=== PATIENT | male | born 1970 | race Caucasian/White ===

== ENCOUNTER 2017-11-11 21:36 | Emergency (ER) | payer OTHER ==
[2017-11-11] MEDS ORDERED: SODIUM CHLORIDE 0.9% 500 ML IV STA (22:13)
[2017-11-11] MEDS ORDERED: MORPHINE SULFATE 4 MG/ML SYRINGE IV STA (22:13)
[2017-11-11] MEDS ORDERED: GLUCAGON 1 MG/ML VIAL IVP STA (22:14)
--- NOTE | 2017-11-11 22:16 | ED ---
General Adult HPI - General Chief complaint: Nausea/Vomiting/Diarrhea Stated complaint: vomiting x 3 hours Source: family Mode of arrival: ambulatory Limitations: no limitations - History of Present Illness Initial comments: Dictation was produced using [employer] dictation software. please excuse any grammatical, word or spelling errors. Chief Complaint: 47-year-old malein the past medical history presents with feelings of impacted food in his lower chest. History of Present Illness: Patient is a 47-year-old male presents with feelings of fluid in his chest. Patient states that he was eating spaghetti steak when during the end of his middle he felt as if there was something stuck in his throat and lower chest. He drank some cold after seeing that recommendation on the Internet. It relieved his symptoms slightly however symptoms return. Patient has similar episode approximately one month ago with eating however not as severe. Denies any constitutional symptoms. Denies any pain. The ROS documented in this emergency department record has been reviewed and confirmed by me. Those systems with pertinent positive or negative responses have been documented in the HPI. All other systems are other negative and/or noncontributory. - Related Data Home Medications Medication Instructions Recorded Confirmed No Known Home Medications 11/11/17 11/11/17 Allergies Allergy/AdvReac Type Severity Reaction Status Date / Time No Known Allergies Allergy Verified 11/11/17 21:42 Review of Systems ROS Statement: Those systems with pertinent positive or pertinent negative responses have been documented in the HPI. ROS Other: All systems not noted in ROS Statement are negative. Past Medical History Past Medical History: No Reported History History of Any Multi-Drug Resistant Organisms: None Reported Past Surgical History: No Surgical Hx Reported Past Psychological History: No Psychological Hx Reported Smoking Status: Never smoker Past Alcohol Use History: Occasional Past Drug Use History: None Reported General Exam - General Exam Comments Initial Comments: PHYSICAL EXAM: General Impression: Alert and oriented x3, acute distress, frequent belching HEENT: Normocephalic atraumatic, extra-ocular movements intact, pupils equal and reactive to light bilaterally, mucous membranes moist. Cardiovascular: Heart regular rate and rhythm, S1&S2 audible, no murmurs, rubs or gallops Chest: Lungs clear to auscultation bilaterally, no rhonchi, no wheeze, no rales Abdomen: Bowel sounds present, abdomen soft, non-tender, non-distended, no organomegaly Musculoskeletal: Pulses present and equal in all extremities, no peripheral edema Motor: Power 5/5 bilaterally, no focal deficits noted Neurological: CN II-XII grossly intact, no focal motor or sensory deficits noted Skin: Intact with no visualized rashes Psych: Normal affect and mood Limitations: no limitations Course Vital Signs 11/11/17 11/11/17 11/11/17 21:39 21:47 22:50 Temperature 98.2 F Pulse Rate 77 88 82 Respiratory 18 20 20 Rate Blood Pressure 118/73 123/68 137/71 O2 Sat by Pulse 99 99 99 Oximetry 11/11/17 11/12/17 11/12/17 23:53 00:35 01:15 Temperature Pulse Rate 78 74 68 Respiratory 20 18 20 Rate Blood Pressure 114/72 121/76 110/57 O2 Sat by Pulse 97 98 95 Oximetry Medical Decision Making - Medical Decision Making ED course: 47-year-old male presents with clinical presentation suspicious for impacted food. All signs upon arrival are within acceptable limits. The differentials also included esophageal spasm.Laboratory evaluation obtained. CBC unremarkable. Metabolic panel is negative. Patient has mild glycemia 120. Troponins negative. 2 EKGs were obtained showing no acute processes. Clinical presentation consistent with impacted food bolus versus esophageal spasm. Pending discussion with GI specialist. Discussed patient case with Dr. Farmer who is on-call for gastroenterology. Patient be scheduled for urgent upper endoscopy. Patient was scoped by lyft driver. There was piece of residual stake in the esophagus. It was pushed into the stomach. There are multiple biopsies taken. GI recommendations were to follow up with GI outpatient. EKG interpretation: Ventricular rate 77, normal sinus rhythm, MO interval 162, care is 102, QTC 423.. No MO prolongation, no QTC prolongation, no ST or T-wave changes noted. . Overall, this EKG is unremarkable. Repeat EKG performed 20 minutes later showing no dynamic changes. - Lab Data Result diagrams: 11/11/17 22:50 11/11/17 22:50 Lab Results 11/11/17 11/11/17 11/11/17 Range/Units 22:50 22:50 22:50 WBC 9.7 (3.8-10.6) k/uL RBC 4.92 (4.30-5.90) m/uL Hgb 16.0 (13.0-17.5) gm/dL Hct 44.5 (39.0-53.0) % MCV 90.3 (80.0-100.0) fL MCH 32.5 (25.0-35.0) pg MCHC 36.0 (31.0-37.0) g/dL RDW 13.4 (11.5-15.5) % Plt Count 215 (150-450) k/uL Neutrophils % 73 % Lymphocytes % 19 % Monocytes % 5 % Eosinophils % 1 % Basophils % 0 % Neutrophils # 7.1 (1.3-7.7) k/uL Lymphocytes # 1.8 (1.0-4.8) k/uL Monocytes # 0.5 (0-1.0) k/uL Eosinophils # 0.1 (0-0.7) k/uL Basophils # 0.0 (0-0.2) k/uL Sodium 142 (137-145) mmol/L Potassium 4.7 (3.5-5.1) mmol/L Chloride 105 (98-107) mmol/L Carbon Dioxide 25 (22-30) mmol/L Anion Gap 12 mmol/L BUN 16 (9-20) mg/dL Creatinine 0.88 (0.66-1.25) mg/dL Est GFR (CKD-EPI)AfAm >90 (>60 ml/min/1.73 sqM) Est GFR (CKD-EPI)NonAf >90 (>60 ml/min/1.73 sqM) Glucose 120 H (74-99) mg/dL Calcium 10.5 H (8.4-10.2) mg/dL Total Bilirubin 0.5 (0.2-1.3) mg/dL AST 69 H (17-59) U/L ALT 74 H (21-72) U/L Alkaline Phosphatase 65 (38-126) U/L Troponin I <0.012 (0.000-0.034) ng/mL Total Protein 8.6 H (6.3-8.2) g/dL Albumin 5.0 (3.5-5.0) g/dL Disposition Clinical Impression: Food impaction of esophagus Disposition: HOME SELF-CARE Condition: Good Instructions: Dysphagia (ED) Is patient prescribed a controlled substance at d/c from ED?: No Referrals: None,Stated [Primary Care Provider] - 1-2 days Sushma Farmer MD [STAFF PHYSICIAN] - 1-2 days Time of Disposition: 01:50
[2017-11-11 22:57] LABS: Basophils % (A) 0 %; Eosinophils # (A) 0.1 k/uL (0-0.7); Eosinophils % (A) 1 %; HCT 44.5 % (39.0-53.0); Lymphocytes # (A) 1.8 k/uL (1.0-4.8); Lymphocytes % (A) 19 %; MCH 32.5 pg (25.0-35.0); MCV 90.3 fL (80.0-100.0); Mean Platelet Volume 7.3; Monocytes # (A) 0.5 k/uL (0-1.0); Monocytes % (A) 5 %; Neutrophils # (A) 7.1 k/uL (1.3-7.7); Neutrophils % (A) 73 %; Platelet Count 215 k/uL (150-450); RBC 4.92 m/uL (4.30-5.90); RDW 13.4 % (11.5-15.5); WBC 9.7 k/uL (3.8-10.6)
[2017-11-11 23:18] LABS: ALT 74 U/L (21-72); AST 69 U/L (17-59); Alkaline Phosphatase 65 U/L (38-126); Blood Urea Nitrogen 16 mg/dL (9-20); Calcium 10.5 mg/dL (8.4-10.2); Carbon Dioxide 25 mmol/L (22-30); Glucose 120 mg/dL (74-99); Total Bilirubin 0.5 mg/dL (0.2-1.3); Total Protein 8.6 g/dL (6.3-8.2)
[2017-11-11 23:24] LABS: Anion Gap 12 mmol/L; Chloride 105 mmol/L (98-107); Potassium 4.7 mmol/L (3.5-5.1); Sodium 142 mmol/L (137-145)
--- NOTE | 2017-11-12 00:04 | XR ---
EXAMINATION TYPE: XR chest 1V DATE OF EXAM: 11/11/2017 COMPARISON: NONE HISTORY: Vomiting TECHNIQUE: Single frontal view of the chest is obtained. FINDINGS: Heart and mediastinum are normal. Lungs are clear. Diaphragm is normal. Bony thorax appear s normal. IMPRESSION: Normal chest.
--- NOTE | 2017-11-12 00:05 | XR ---
EXAMINATION TYPE: XR KUB DATE OF EXAM: 11/11/2017 COMPARISON: NONE HISTORY: Vomiting TECHNIQUE: 2 views supine FINDINGS: There is no sign of intestinal obstruction or pneumoperitoneum. Fecal pattern is normal. Th ere is no evidence of a mass. There are no pathologic calcifications over the kidneys. Lung bases are clear. IMPRESSION: Nonacute abdomen.
[2017-11-12 01:16] VITALS: PULSE 68; RESP 20
[2017-11-12] MEDS ORDERED: PROPOFOL 10 MG/ML 20 ML VIAL IV ONE (01:22)
[2017-11-12] MEDS ORDERED: LIDOCAINE 1% INJ 10MG/ML (20 ML MDV) ONE (01:22)
[2017-11-12] MEDS ORDERED: SODIUM CHLORIDE 0.9% 1,000 ML IV ONE (01:29)
[2017-11-12 02:33] VITALS: BP 117/77; TEMP 97.8
--- NOTE | 2017-11-12 10:59 | PCN ---
PROCEDURE NOTE DATE OF DICTATION: 11/12/2017 Patient is a 47-year-old white male who came in to the emergency room with acute food impaction. He was eating a piece of steak for dinner and could not swallow any further. He was given glucagon with no relief. He is then scheduled for an upper endoscopy on an emergency basis. PROCEDURE PERFORMED: EGD with biopsy and foreign body removal. PREOPERATIVE DIAGNOSIS: Acute food impaction. POSTOPERATIVE DIAGNOSIS: Acute food impaction. IV sedation by Anesthesia. PROCEDURE: After informed consent was obtained from the patient, he was brought into the endoscopy unit. IV conscious sedation was administered by Anesthesia under continuous monitoring. Initially, the videofluoroscopy was inserted into the and advanced into the mid esophagus, there was large amount of food material that was aspirated and removed with the scope. Subsequently, there was evidence of food impaction in the distal esophagus. Gently using the scope, I was able to push the piece of meat into the stomach with some difficulty. The scope at this time was advanced into the stomach and duodenum. Bulb and the second part of duodenum appeared normal. Scope was then withdrawn to the stomach adequately, insufflated with air and upon careful examination, mucosa of the antrum, body, cardia and fundus appear normal. Scope was then withdrawn to the GE junction was located at 40 cm from the incisors. There was no obvious stricture identified. However, the mucosa in the mid and esophagus was very thickened with longitudinal folds and ridges suspicious for eosinophilic esophagitis and multiple biopsies were done from this area. The rest of the esophagus appeared normal and the patient tolerated the procedure well. IMPRESSION: 1. Food impaction in the distal esophagus, status post removal as described above. 2. Thickened distal esophageal folds, status post multiple biopsies, to rule out the eosinophilic esophagitis. 3. No evidence of obvious stricture. RECOMMENDATIONS: Findings of this examination were discussed with the patient as well as his family. He was advised to follow up with biopsy and he will be seen in the office in 2 weeks. MMODL / IJN: [id number] /
== END 2017-11-12 02:33 | disposition home or self-care (01) ==
LOC: EC 21:36
DX: T18.128A Food in esophagus causing other injury, initial encounter (principal); R73.9 Hyperglycemia, unspecified
CPT/HCPCS: 36415; 93005; 88305; 80053; 84484; 85025; 71045; 74018; 43239; 43247; 99284; 96374; 96375; 96361; J2270; J1610

== ENCOUNTER → 2017-11-28 | Outpatient (CLI) | payer OTHER ==
--- NOTE | 2017-11-28 13:45 | US ---
EXAMINATION TYPE: US liver DATE OF EXAM: 11/28/2017 COMPARISON: NONE CLINICAL HISTORY: R74.8 Elevated Liver Enzymes. Elevated liver enzymes EXAM MEASUREMENTS: Liver Length: 17.8 cm Gallbladder Wall: 0.1 cm CBD: 0.3 cm Right Kidney: 11.7 x 5.8 x 5.3 cm Pancreas: visualized portions wnl, head and tail limited by overlying midline bowel gas Liver: measures in upper limits of normal, suspect a coarse echotexture Gallbladder: wnl Evidence for sonographic Prasad's sign: no CBD: wnl Right Kidney: visualized portions wnl, inferior pole obscured by overlying bowel gas There is no ascites. IMPRESSION: There is underlying hepatomegaly, correlate for possible hepatic steatosis. Limited exam
== END | disposition home or self-care (01) ==
LOC: RADUSWWP 06:52
PROVIDERS: ATTEND Internal Medicine Gastroenterology
DX: R16.0 Hepatomegaly, not elsewhere classified (principal)
CPT/HCPCS: 76705

== ENCOUNTER → 2017-11-29 | Outpatient (CLI) | payer OTHER ==
[2017-11-29 11:53] LABS: Prothrombin Time 9.8 sec (9.0-12.0)
[2017-11-29 15:46] LABS: Iron Saturation 25.32 (15.00-50.00)
[2017-11-29 15:51] LABS: Albumin 4.7 g/dL (3.80-4.90); Albumin/Globulin Ratio 1.81 (1.20-2.10); Bilirubin, Conjugated 0.2 mg/dL (0.20-0.40); Bilirubin,Unconjugated 0.3 mg/dL; Globulin 2.6 g/dL (2.1-3.7); Total Bilirubin 0.5 mg/dL (0.3-1.2); Total Protein 7.3 g/dL (6.2-8.2)
[2017-11-29 15:53] LABS: Protein, Total 7.3 g/dL (6.2-8.2)
[2017-11-29 16:11] LABS: Hepatitis A Antibody IgM Non-Reactive (Non-Reactive); Hepatitis B Core IgM Non-Reactive (Non-Reactive)
[2017-11-30 12:26] LABS: Ceruloplasmin 23.2 mg/dL (20.0-60.0)
== END | disposition home or self-care (01) ==
LOC: LABWHC1 10:08
PROVIDERS: ATTEND Physician Assistant
DX: R74.8 Abnormal levels of other serum enzymes (principal)
CPT/HCPCS: 36415; 80074; 80076; 82103; 82390; 82728; 83540; 83550; 84165; 85610; 86038